=== PATIENT | female | born 1995 | race Caucasian/White ===

== ENCOUNTER → 2018-10-22 21:23 | Observation (INO) ==
[2018-10-22 20:45] LABS: Bilirubin,Urine Negative (Negative); Blood,Urine Negative (Negative); Clarity,Urine Cloudy (Clear); Color,Urine Yellow (Yellow); Glucose,Urine (UA) Normal (Normal); Ketones,Urine Negative (Negative); Leukocyte Esterase,Urine Trace (Negative); Nitrite,Urine Negative (Negative); PH,Urine 6.5 pH Units (5.0-8.0); Protein,Urine Negative (Neg-Trace); Specific Gravity,Urine 1.006 (1.010-1.025); Urobilinogen,Urine Normal (Normal)
[2018-10-22 20:54] LABS: Amphetamine Screen,Urine Negative ng/mL (Cutoff=1000); Barbiturate Screen,Urine Negative ng/mL (Cutoff=200); Benzodiazepines Screen,Urine Negative ng/mL (Cutoff=200); Cannabinoid Screen,Urine Negative ng/mL (Cutoff = 50); Cocaine Screen,Urine Negative ng/mL (Cutoff= 300); Opiate Screen,Urine Negative ng/mL (Cutoff=300); Phencyclidine Screen,Urine Negative ng/mL (Cutoff=25)
[2018-10-22 20:57] LABS: Bacteria,Urine Moderate per hpf (None-Few); RBC,Urine 0-3 per hpf (0-3); Squamous Epithelial Cell,Urine Many per lpf (None-Few); WBC,Urine 0-3 per hpf (0-3)
--- NOTE | 2018-10-22 21:19 | Discharge Summary ---
Date of Encounter: 10/22/18 Time of Encounter: 21:19 - Discharge Diagnosis (1) Burning with urination Priority: Secondary Status: Acute Comments: UA - negative (2) 27 weeks gestation of Priority: Primary Status: Acute Comments: Follow up with Dr. Pro as scheduled labor parameters discussed Discharge home (3) Decreased movement Priority: Secondary Status: Acute Comments: Movement noted on monitor >10/hr Qualifiers: Fetus number: single or unspecified fetus Trimester: second trimester Qualified Code(s): O36.8120 - Decreased movements, second trimester, not applicable or unspecified - Discharge Medications Home Medications: 19 Tablet 1 tab PO DAILY 10/04/18 [History] Allergies/Adverse Reactions: Allergy/AdvReac Type Severity Reaction Status Date / Time latex Allergy Rash Verified 02/21/18 22:36 nystatin Allergy Rash Verified 02/21/18 22:36 Data Procedures and tests throughout hospitalization: Laboratory Tests 10/22/18 10/22/18 20:30 20:30 Urine Color Yellow Urine Clarity Cloudy A Urine pH 6.5 Ur Specific [place] 1.006 L Urine Protein Negative Urine Glucose (UA) Normal Urine Ketones Negative Urine Blood Negative Urine Nitrite Negative Urine Bilirubin Negative Urine Urobilinogen Normal Ur Leukocyte Esterase Trace H Urine Microscopic RBC 0-3 Urine Microscopic WBC 0-3 Ur Squamous Epith Cells Many H Urine Bacteria Moderate H Ur Culture Indicated? NO. A Urine Opiates Screen Negative Ur Barbiturates Screen Negative Ur Phencyclidine Scrn Negative Ur Amphetamines Screen Negative U Benzodiazepines Scrn Negative Urine Cocaine Screen Negative U Marijuana (THC) Screen Negative Ur Drug Screen Interp See Below Labs on day of discharge: Labs from last 24 hours 10/22/18 10/22/18 20:30 20:30 Urine Color Yellow Urine Clarity Cloudy A Urine pH 6.5 Ur Specific [place] 1.006 L Urine Protein Negative Urine Glucose (UA) Normal Urine Ketones Negative Urine Blood Negative Urine Nitrite Negative Urine Bilirubin Negative Urine Urobilinogen Normal Ur Leukocyte Esterase Trace H Urine Microscopic RBC 0-3 Urine Microscopic WBC 0-3 Ur Squamous Epith Cells Many H Urine Bacteria Moderate H Ur Culture Indicated? NO. A Urine Opiates Screen Negative Ur Barbiturates Screen Negative Ur Phencyclidine Scrn Negative Ur Amphetamines Screen Negative U Benzodiazepines Scrn Negative Urine Cocaine Screen Negative U Marijuana (THC) Screen Negative Ur Drug Screen Interp See Below Date of admission: 10/22/18 20:26 Discharging clinician: Claudia Singleton Anticipated date of discharge: 10/22/18 - Patient Status Disposition: Home, Self-Care Condition: Good Functional capacity at discharge: independent ambulation Overall status at discharge: patient is progressing back to baseline - Discharge Instructions Follow Up With: Zander Pro DO [Partnered Physician] - - Diet and Activity Activity: increase activity as tolerated Diet: regular diet 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 Chavarria is a 23 year old at 27 weeks 3 days gestation who presents with concerns for decreased movement since this afternoon. The fetus was noted to be exuberantly moving when placed on ultrasound and toco. She also reports some burning with urination. Urinalysis studies were negative. She was monitored for over an hour with more then 10 movements during that time. She follows up with Dr. Pro next week. She was advised to keep this appointment. She was discharged home in stable condition. Time Attestation: Total time spent providing and/or coordinating discharge services: Time Spent: Less than 30 minutes Exam - Constitutional General appearance IM: A&O X 3, pleasant, obese - Respiratory Respiratory exam: Present: CTAB - Cardiovascular Cardiovascular exam IM: Present: RRR, +S1, +S2 - GI/Abdominal GI/Abdominal exam IM: normal bowel sounds, no peritoneal signs - Rectal Rectal exam: deferred - Uterine Tone: Firm - Extremities Exam Extremities exam IM: Present: normal capillary refill, normal inspection, radial pulses palpable and symmetrical - Neurological Exam Neurological exam: alert, CN II-XII intact, normal gait, oriented X3, reflexes normal, no focal deficits, strengths equal and symetr throughout - VTE Reasons for not Prescribing Prophylaxis: Treatment not Indicated - Low risk for VTE
== END | disposition home or self-care (01) ==
LOC: 1NENULAB
PROVIDERS: ADMIT Advanced Practice Midwife; ATTEND Advanced Practice Midwife

== ENCOUNTER → 2018-12-11 22:03 | Observation (INO) ==
--- NOTE | 2018-12-11 20:09 | Anesthesia Evaluation PreOp ---
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 HX Other Medical History: Denies Any Significant HX Anesthesia History: No Prior Anesthetic Complications, Past Anesthesia (denies family hx, previous epidural without comp) Alcohol Use: none Drug use: none Medications and Allergies 19 Tablet 1 tab PO DAILY 10/04/18 [History] Allergy/AdvReac Type Severity Reaction Status Date / Time latex Allergy Rash Verified 02/21/18 22:36 nystatin Allergy Rash Verified 02/21/18 22:36 Anesthesia Exam - HEENT Pupil (Motor): Pupils equal Teeth: Normal Oral Opening: Greater than 3 - ASSOCIATE FIELD SERVICE ENGINEER LOC: Oriented ASSOCIATE FIELD SERVICE ENGINEER Motor: Normal RUE, Normal LUE, Normal RLE, Normal LLE, Normal Face ASSOCIATE FIELD SERVICE ENGINEER Sensory: Normal: RUE, LUE, RLE, LLE, Face - Cardiac Rhythm: Regular Murmur: None - Pulmonary Breath Sounds: bilateral Clear Respiratory Effort: Symmetrical Anesthesia Assess/Plan ASA Score: 2 Level of consciousness: Cooperative, Oriented Anesthetic Plan: General, Spinal, Epidural Monitoring Plan: Standard Monitors Recovery Plan: PACU
[2018-12-11 20:32] LABS: Amphetamine Screen,Urine Negative ng/mL (Cutoff=1000); Barbiturate Screen,Urine Negative ng/mL (Cutoff=200); Benzodiazepines Screen,Urine Negative ng/mL (Cutoff=200); Cannabinoid Screen,Urine Negative ng/mL (Cutoff = 50); Cocaine Screen,Urine Negative ng/mL (Cutoff= 300); Opiate Screen,Urine Negative ng/mL (Cutoff=300); Phencyclidine Screen,Urine Negative ng/mL (Cutoff=25)
[2018-12-11 21:08] LABS: Bilirubin,Urine Small (Negative); Blood,Urine Negative (Negative); Clarity,Urine Cloudy (Clear); Glucose,Urine (UA) Normal (Normal); Ketones,Urine Trace mg/dL (Negative); Leukocyte Esterase,Urine Moderate (Negative); Nitrite,Urine Negative (Negative); Protein,Urine Trace mg/dL (Neg-Trace); Specific Gravity,Urine 1.026 (1.010-1.025); Urobilinogen,Urine Normal (Normal)
[2018-12-11 21:10] LABS: Bacteria,Urine Many per hpf (None-Few); Hyaline Casts,Urine None Seen per lpf (None-Few); Squamous Epithelial Cell,Urine Many per lpf (None-Few); WBC,Urine 50-100 per hpf (0-3)
[2018-12-11 21:13] LABS: Color,Urine Yellow (Yellow)
[2018-12-11 21:22] LABS: RBC,Urine 0-3 per hpf (0-3)
--- NOTE | 2018-12-11 21:48 | Discharge Summary ---
Date of Encounter: 12/11/18 Time of Encounter: 21:47 - Discharge Diagnosis (1) 34 weeks gestation of Priority: Primary Status: Acute Comments: admitted for observation for decreased movement (2) NST (non-stress test) nonreactive Priority: Secondary Status: Acute Comments: FHR baseline 125 bpm moderate variability +15x15 accels no decels noted. - Discharge Medications Home Medications: 19 Tablet 1 tab PO DAILY 10/04/18 [History] Famotidine [Pepcid] 1 tab PO PRN PRN 12/11/18 [History] Allergies/Adverse Reactions: Allergy/AdvReac Type Severity Reaction Status Date / Time latex Allergy Rash Verified 12/11/18 20:05 nystatin Allergy Rash Verified 12/11/18 20:05 Data Procedures and tests throughout hospitalization: Laboratory Tests 12/11/18 12/11/18 20:05 21:00 Urine Color Yellow Urine Clarity Cloudy A Urine pH 6.0 Ur Specific [place] 1.026 H Urine Protein Trace Urine Glucose (UA) Normal Urine Ketones Trace H Urine Blood Negative Urine Nitrite Negative Urine Bilirubin Small H Urine Urobilinogen Normal Ur Leukocyte Esterase Moderate H Urine Microscopic RBC 0-3 Urine Microscopic WBC 50-100 H Ur Squamous Epith Cells Many H Urine Bacteria Many H Hyaline Casts None Seen Ur Culture Indicated? NO. A Urine Opiates Screen Negative Ur Barbiturates Screen Negative Ur Phencyclidine Scrn Negative Ur Amphetamines Screen Negative U Benzodiazepines Scrn Negative Urine Cocaine Screen Negative U Marijuana (THC) Screen Negative Ur Drug Screen Interp See Below Labs on day of discharge: Labs from last 24 hours 12/11/18 12/11/18 21:00 20:05 Urine Color Yellow Urine Clarity Cloudy A Urine pH 6.0 Ur Specific [place] 1.026 H Urine Protein Trace Urine Glucose (UA) Normal Urine Ketones Trace H Urine Blood Negative Urine Nitrite Negative Urine Bilirubin Small H Urine Urobilinogen Normal Ur Leukocyte Esterase Moderate H Urine Microscopic RBC 0-3 Urine Microscopic WBC 50-100 H Ur Squamous Epith Cells Many H Urine Bacteria Many H Hyaline Casts None Seen Ur Culture Indicated? NO. A Urine Opiates Screen Negative Ur Barbiturates Screen Negative Ur Phencyclidine Scrn Negative Ur Amphetamines Screen Negative U Benzodiazepines Scrn Negative Urine Cocaine Screen Negative U Marijuana (THC) Screen Negative Ur Drug Screen Interp See Below Date of admission: 12/11/18 19:58 Discharging clinician: Marya Harkins Anticipated date of discharge: 12/11/18 - Patient Status Disposition: Home, Self-Care Condition: Good Functional capacity at discharge: independent ambulation - Discharge Instructions Follow Up With: Zander Pro DO [Partnered Physician] - - Diet and Activity Activity: increase activity as tolerated 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 Patient denies LOF, VB or contractions. Patient reports intercourse in past 24 hours. Denies any urinary symptoms including frequency and dysuria. Time Attestation: Total time spent providing and/or coordinating discharge services: Time Spent: Less than 30 minutes Exam - Constitutional General appearance IM: A&O X 3, pleasant, answers questions appropriately - Respiratory Respiratory exam: Present: CTAB - Cardiovascular Cardiovascular exam IM: Present: RRR - GI/Abdominal GI/Abdominal exam IM: normal bowel sounds - Extremities Exam Extremities exam IM: Present: full ROM, normal capillary refill, normal inspection - Other Additional findings: FHR 135 bpm moderate variability contractions noted every 3-4 min after vaginal exam per RN. SVE was 1/thick/-2. NO cervical change after 1 hour. - VTE Reasons for not Prescribing Prophylaxis: Treatment not Indicated - Low risk for VTE
[~2018-12-11 22:03] MED LIST: Epidural Premix (fent/bupiv) 110 ML EP SCH
== END | disposition home or self-care (01) ==
LOC: 1NENULAB
PROVIDERS: ADMIT Advanced Practice Midwife; ATTEND Advanced Practice Midwife

== ENCOUNTER → 2020-05-15 15:10 | Observation (INO) | END | disposition home or self-care (01) | LOC: 1NENULAB | PROVIDERS: ADMIT Obstetrics & Gynecology; ATTEND Obstetrics & Gynecology ==

== ENCOUNTER 2020-05-24 14:23 | Observation (INO) | END 2020-05-24 16:11 | disposition home or self-care (01) | LOC: 1NENULAB | PROVIDERS: ADMIT Student in an Organized Health Care Education/Training Program; ATTEND Student in an Organized Health Care Education/Training Program ==

== ENCOUNTER 2020-05-27 12:09 | Inpatient (IN) ==
[~2020-05-27 12:09] MED LIST changes: +*HR* FentaNYL (PF) 100 MCG/2 ML VIAL IVP PRN; +Azithromycin 500 MG in 0.9 % Sodium Chloride 250 ML IVPB ONE; -Epidural Premix (fent/bupiv) 110 ML EP SCH; +Famotidine 20 MG/2 ML VIAL IVP PRN; +Lidocaine 1% 20 ML MDV ID PRN; +Metoclopramide 10 MG/2 ML VIAL IVP PRN; +Naloxone 0.4 MG/ML INJ IVP PRN; +Ondansetron 4 MG/2 ML VIAL IVP PRN; +Penicillin G Potassium 5,000,000 UNIT in 0.9 % Sodium Chloride Mini Bag 100 ML IVPB ONE
[2020-05-27 12:25] LABS: Basophils % 0.2 %; Eosinophils % 0.2 %; Hematocrit 34.1 % (35.3-44.9); Hemoglobin 10.1 g/dL (11.5-15.4); Immature Granulocytes % 0.5 % (0-4); Lymphocytes # 1.5 K/mcL (0.6-4.6); Lymphocytes % 15.9 %; Mean Corpuscular HGB Conc 29.6 g/dL (31.6-35.5); Mean Corpuscular Hemoglobin 23.1 pg (28.0-33.3); Mean Platelet Volume 10.4 fL (9.4-12.4); Monocytes # 0.8 K/mcL (0.0-1.3); Monocytes % 8.5 %; Platelet Count 198 K/mcL (140-400); Red Blood Count 4.37 M/mcL (3.82-4.97); Red Cell Distribution Width 13.8 % (11.5-14.5); Segmented Neutrophils % 74.7 %; White Blood Count 9.4 K/mcL (4.3-11.1)
[2020-05-27 12:33] LABS: Amphetamine Screen,Urine Negative ng/mL (Cutoff=1000); Barbiturate Screen,Urine Negative ng/mL (Cutoff=200); Benzodiazepines Screen,Urine Negative ng/mL (Cutoff=200); Cannabinoid Screen,Urine Negative ng/mL (Cutoff = 50); Cocaine Screen,Urine Negative ng/mL (Cutoff= 300); Opiate Screen,Urine Negative ng/mL (Cutoff=300); Phencyclidine Screen,Urine Negative ng/mL (Cutoff=25)
[2020-05-27] MEDS: Ringers Solution, Lactated 1,000 ML IVC SCH ×2 (12:35→20:47)
[2020-05-27] MEDS ORDERED: Ropivacaine/PF 0.2% 20 ML VIAL ONE (15:10)
[2020-05-27] MEDS ORDERED: *HR* FentaNYL (PF) 100 MCG/2 ML VIAL ONE (15:10)
[2020-05-27] MEDS ORDERED: Epidural Premix (fent/bupiv) 110 ML EP ONE (15:11)
[2020-05-27] MEDS ORDERED: EPHEDrine 50 MG/ML VIAL IVP PRN (15:38)
[2020-05-27] MEDS ORDERED: Epidural Premix (fent/bupiv) 110 ML EP SCH (15:45)
[2020-05-27] MEDS ORDERED: Oxytocin 20 units/ LR 1000 mL 20 UNIT/1,000 ML BAG IVC SCH (16:30)
[2020-05-27] MEDS: Penicillin G Potassium 2,500,000 UNIT/105 ML MLS IVPB SCH ×2 (16:57→20:47)
[2020-05-27] MEDS ORDERED: CeFAZolin 2,000 MG/50 ML BAG IVPB ONE (21:17)
[2020-05-27] MEDS ORDERED: Chloroprocaine/PF 20 ML VIAL INFILT ONE (21:28)
[2020-05-27] MEDS ORDERED: *HR* Oxytocin 10 UNIT/ML VIAL IM ONE ×2 (21:28→21:59)
[2020-05-27] MEDS ORDERED: *HR* Phenylephrine 10 MG/ML VIAL ONE (21:28)
[2020-05-27] MEDS ORDERED: *HR* Morphine Sulfate/PF 10 MG/10 ML AMPUL ONE (21:29)
[2020-05-27] MEDS ORDERED: Ondansetron 4 MG/2 ML VIAL ONE (21:53)
[2020-05-27] MEDS ORDERED: Ringers Solution, Lactated 1,000 ML ONE ×2 (21:59→22:09)
[2020-05-27] MEDS ORDERED: Azithromycin 500 MG in 0.9 % Sodium Chloride 250 ML IVPB SCH (22:00)
[2020-05-27] MEDS ORDERED: Lidocaine -MPF 2% 5 ML VIAL ONE (22:07)
[2020-05-27 22:38] LABS: Basophils % 0.1 %; Hematocrit 27.7 % (35.3-44.9); Hemoglobin 8.2 g/dL (11.5-15.4); Immature Granulocytes % 0.4 % (0-4); Lymphocytes # 0.9 K/mcL (0.6-4.6); Lymphocytes % 8.1 %; Mean Corpuscular HGB Conc 29.6 g/dL (31.6-35.5); Mean Corpuscular Hemoglobin 23.1 pg (28.0-33.3); Mean Platelet Volume 10.7 fL (9.4-12.4); Monocytes # 0.8 K/mcL (0.0-1.3); Monocytes % 6.6 %; Neutrophils # 9.8 K/mcL (1.6-8.9); Platelet Count 197 K/mcL (140-400); Red Blood Count 3.55 M/mcL (3.82-4.97); Red Cell Distribution Width 13.9 % (11.5-14.5); Segmented Neutrophils % 84.8 %; White Blood Count 11.6 K/mcL (4.3-11.1)
[2020-05-27 22:59] LABS: Alanine Aminotransferase 11 Units/L (7-52); Albumin/Globulin Ratio 1.3 (1.1-2.2); Alkaline Phosphatase 143 Units/L (34-104); Aspartate Amino Transferase 14 Units/L (13-39); BUN/Creatinine Ratio 15 (6-26); Bilirubin,Total 0.6 mg/dL (0.3-1.0); Blood Urea Nitrogen 8 mg/dL (6-20); Calcium 8.6 mg/dL (8.6-10.3); Carbon Dioxide 19 mEq/L (23-29); Chloride 106 mEq/L (98-107); Globulin 2.3 g/dL (2.4-3.5); Glucose 90 mg/dL (70-105); Osmolality,Calculated 278 (280-300); Potassium 3.8 mEq/L (3.5-5.1); Sodium 135 mEq/L (136-145); Total Protein 5.3 g/dL (6.4-8.9); eGFR For African Americans > 60 (> 60); eGFR For Non-African Americans > 60 (> 60)
[2020-05-27] MEDS ORDERED: *HR* HYDROmorphone (PF) 1 MG/ML SYRINGE IVP PRN (22:59)
[2020-05-27] MEDS ORDERED: Morphine Sulfate 2 MG/ML SYRINGE IVP PRN (22:59)
[2020-05-27] MEDS ORDERED: *HR* OxyCODONE/APAP 5/325 TABLET PO PRN (22:59)
[2020-05-27] MEDS ORDERED: Ibuprofen 400 MG TABLET PO PRN (22:59)
[2020-05-27] MEDS ORDERED: Acetaminophen IV 1,000 MG/100 ML BAG ONE (23:15)
[2020-05-28] MEDS ORDERED: Ondansetron 4 MG/2 ML VIAL IVP PRN (01:22)
[2020-05-28] MEDS ORDERED: Sennosides 8.6 MG TABLET PO PRN (01:22)
[2020-05-28] MEDS ORDERED: Oxytocin 20 units/ LR 1000 mL 20 UNIT/1,000 ML BAG IVC SCH (01:22)
[2020-05-28] MEDS ORDERED: Metoclopramide 10 MG/2 ML VIAL IVP PRN (01:22)
[2020-05-28] MEDS ORDERED: Acetaminophen IV 1,000 MG/100 ML BAG IVPB STA (01:22)
[2020-05-28] MEDS ORDERED: *HR* OxyCODONE/APAP 5/325 TABLET PO PRN (01:22)
[2020-05-28] MEDS ORDERED: Simethicone 80 MG TAB.CHEW PO PRN (01:22)
[2020-05-28] MEDS: Ibuprofen 600 MG TABLET PO SCH ×5 (03:07→23:36)
[2020-05-28] MEDS: Famotidine 20 MG/2 ML VIAL IVP SCH ×3 (03:08→20:13)
[2020-05-28 08:20] LABS: Basophils % 0.1 %; Hematocrit 27.2 % (35.3-44.9); Hemoglobin 8.3 g/dL (11.5-15.4); Immature Granulocytes % 0.4 % (0-4); Lymphocytes # 1.1 K/mcL (0.6-4.6); Lymphocytes % 8.7 %; Mean Corpuscular HGB Conc 30.5 g/dL (31.6-35.5); Mean Corpuscular Hemoglobin 23.7 pg (28.0-33.3); Mean Corpuscular Volume 77.7 fL (83.0-100.0); Mean Platelet Volume 10.5 fL (9.4-12.4); Monocytes # 1.1 K/mcL (0.0-1.3); Monocytes % 8.2 %; Platelet Count 163 K/mcL (140-400); Red Cell Distribution Width 14.1 % (11.5-14.5); Segmented Neutrophils % 82.6 %
[2020-05-28 08:22] LABS: Neutrophils # 10.7 K/mcL (1.6-8.9)
[2020-05-28] MEDS: cephALEXin 500 MG CAPSULE PO SCH ×3 (11:06→21:05)
[2020-05-28] MEDS: metroNIDAZOLE 500 MG TABLET PO SCH ×3 (11:41→21:05)
[2020-05-28] MEDS: Prenatal Vit/FA 1 EACH TABLET PO SCH (11:41)
[2020-05-28] MEDS: Acetaminophen 325 MG TABLET PO SCH ×3 (12:41→23:36)
[2020-05-28] MEDS ORDERED: Mag Hydrox/Al Hydrox/Simeth 30 ML UDC PO PRN (17:11)
[2020-05-29] MEDS: Famotidine 20 MG/2 ML VIAL IVP SCH (03:06)
[2020-05-29] MEDS: Acetaminophen 325 MG TABLET PO SCH ×2 (05:34→07:52)
[2020-05-29] MEDS: Ibuprofen 600 MG TABLET PO SCH (05:34)
[2020-05-29] MEDS: metroNIDAZOLE 500 MG TABLET PO SCH (07:58)
[2020-05-29] MEDS: Prenatal Vit/FA 1 EACH TABLET PO SCH (07:59)
[2020-05-29] MEDS: cephALEXin 500 MG CAPSULE PO SCH (07:59)
[2020-05-29 08:08] VITALS: BP 91/58
== END 2020-05-29 11:45 | disposition home or self-care (01) | DRG 540 ==
LOC: 1NENULAB → 1NENUOBS 05-28 00:59
PROVIDERS: ADMIT Student in an Organized Health Care Education/Training Program; ATTEND Student in an Organized Health Care Education/Training Program